=== PATIENT | male | born 1970 | race Caucasian/White ===

== ENCOUNTER 2019-06-28 12:36 | Emergency (ER) | payer OTHER ==
[~2019-06-28] VITALS: Ht 175.3 cm; Wt 79.4 kg
--- NOTE | 2019-06-28 12:54 | NUR ---
ED Nurse Note: PT WALKED IN DUE TO HIGH BLOO DPRESSURE OF 217/115 WITH HR 77 2 DAYS AGO. PT C/O HEADACHE, DIZZINESS AND BLURRING OF HIS VISION X 2 WEEKS. DENIES SOB OR CP. AAO X4, AMBULATORY WITH NO RESPIRATORY DISTRESS. PT TOOK CAPOTEN BEFORE GOING TO ED.
[2019-06-28 12:58] VITALS: BP 157/98
[2019-06-28] MEDS ORDERED: Metoclopramide 10mg/2ml Inj IVP ONE (13:15)
[2019-06-28] MEDS ORDERED: Acetaminophen 500mg (ES) tab ORAL ONE (13:15)
--- NOTE | 2019-06-28 13:25 | NUR ---
ED Nurse Note: COLLECTED BLOOD SPECIMENS THEN SENT.
--- NOTE | 2019-06-28 13:30 | NUR ---
ED Nurse Note: PT TAKEN TO CT AND RADIOLOGY VIA WHEELCHAIR.
[2019-06-28 13:47] LABS: EOSINOPHILS % (AUTO) 1.8 % (0.0-3.0); HEMOGLOBIN 14.8 G/DL (14.2-18.0); LYMPHOCYTES % (AUTO) 24.3 % (20.0-45.0); MEAN CORPUSCULAR VOLUME 88 FL (80-99); MONOCYTES % (AUTO) 5.1 % (1.0-10.0); NEUTROPHILS % (AUTO) 67.7 % (45.0-75.0); PLATELET COUNT 259 K/UL (150-450); RED BLOOD COUNT 4.77 M/UL (4.70-6.10); RED CELL DISTRIBUTION WIDTH 11.1 % (11.6-14.8); WHITE BLOOD COUNT 7.9 K/UL (4.8-10.8)
--- NOTE | 2019-06-28 13:47 | NUR ---
ED Nurse Note: PT CAME BACK FROM CT IN STABLE CONDITION.
[2019-06-28 13:52] LABS: ANION GAP 10 mmol/L (5-15); BLOOD UREA NITROGEN 21 mg/dL (7-18); CALCIUM 8.9 MG/DL (8.5-10.1); CARBON DIOXIDE 26 MMOL/L (21-32); CHLORIDE 105 MMOL/L (98-107); POTASSIUM 4.1 MMOL/L (3.5-5.1); SODIUM 141 MMOL/L (136-145)
[2019-06-28 13:56] LABS: ALANINE AMINOTRANSFERASE 28 U/L (12-78); ALBUMIN 3.7 G/DL (3.4-5.0); ALBUMIN/GLOBULIN RATIO 1.1 (1.0-2.7); ALKALINE PHOSPHATASE 57 U/L (46-116); ASPARTATE AMINO TRANSFERASE 22 U/L (15-37); BILIRUBIN,TOTAL 0.3 MG/DL (0.2-1.0)
--- NOTE | 2019-06-28 14:07 | Diagnostic Imaging Report ---
Indication: Headache Technique: Contiguous 5 mm thick transaxial imaging of the head obtained in a Siemens Sensation [address] scanner. Soft tissue and bone windows generated. Automatic Exposure Control was utilized. Total Dose length Product (DLP): 1125.7mGycm CT Dose Index Volume (CTDIvol): 53.4 mGy Comparison: none Findings: The lateral ventricles and third ventricle appear prominent disproportionate to the size of other CSF spaces such as the cerebral sulci, which appear normal. Communicating hydrocephalus may be considered. Correlate clinically. Periventricular white matter appears normal. The cortical sulci and basal cisterns appear normal. There is no mass effect or edema identified. There is no evidence of acute intracranial hemorrhage. Paranasal sinuses and mastoids are clear. Osseous structures are unremarkable. IMPRESSION: Mild disproportionate ventriculomegaly. Consider hydrocephalus. Differential includes mild centralized atrophy of the brain. No mass effect or edema or evidence of acute intracranial hemorrhage. The CT scanner at [facility] is accredited by the [employer] and the scans are performed using dose optimization techniques as appropriate to a performed exam including Automatic Exposure control.
--- NOTE | 2019-06-28 14:09 | Diagnostic Imaging Report ---
Indication: Dyspnea Comparison: None A single view chest radiograph was obtained. Findings: Cardiomediastinal appearance is within normal limits for age. The lungs are clear. Pulmonary vascularity is appropriate. The diaphragmatic contour is smooth and costophrenic angles are sharp. No pleural effusions are identified. The bones are unremarkable. Impression: No acute findings
[2019-06-28] MEDS ORDERED: NORVASC5 MG ORAL (14:34)
[2019-06-28 14:45] VITALS: BP 151/90
--- NOTE | 2019-06-28 14:45 | NUR ---
ER DISCHARGE NOTE: Patient is cleared to be discharged per ERMD, pt is aox4, on room air, with stable vital signs. pt was given dc and prescription instructions, pt was able to verbalize understanding, pt id band and iv site removed without complications. pt is able to ambulate with steady gait. pt took all belongings.
--- NOTE | 2019-06-28 16:09 | Emergency Room Report ---
History of Present Illness General Chief Complaint: Hypertension Source: Patient Present Illness HPI 48-year-old male presents ED for evaluation. Is here complaining of high blood pressure. Checked it over the last few days and states his blood pressure was high. States he did have an episode of chest pain yesterday. Lasted for a few minutes then resolved. Denies chest pain now. States he sees feels lightheaded. BP 165/96. States prior to arrival he took his [id number] captopril. Does not take BP meds himself. Admits to smoking and marijuana use. Denies any other drug use. No other aggravating relieving factors. Denies any other associated symptoms Allergies: Coded Allergies: No Known Allergies (Unverified , 06/28/19) Patient History Past Medical History: none Past Surgical History: none Pertinent Family History: none Social History: Reports: smoking, drug use; Denies: alcohol use Immunizations: UTD Reviewed Nursing Documentation: PMH: Agreed; PSxH: Agreed Nursing Documentation-PMH Past Medical History: No Stated History Review of Systems All Other Systems: negative except mentioned in HPI Physical Exam Vital Signs Date Time Temp Pulse Resp B/P (MAP) Pulse Ox O2 Delivery O2 Flow Rate FiO2 06/28/19 12:44 98.2 67 18 165/96 (119) 99 Room Air Sp02 EP Interpretation: reviewed, normal General Appearance: no apparent distress, alert, GCS 15, non-toxic Head: normocephalic, atraumatic Eyes: bilateral eye normal inspection, bilateral eye PERRL ENT: hearing grossly normal, normal pharynx, no angioedema, normal voice Neck: full range of motion, supple, no meningismus, supple/symm/no masses Respiratory: chest non-tender, lungs clear, normal breath sounds, speaking full sentences Cardiovascular #1: regular rate, rhythm, no edema Cardiovascular #2: 2+ carotid (R), 2+ carotid (L), 2+ radial (R), 2+ radial (L) , 2+ dorsalis pedis (R), 2+ dorsalis pedis (L) Gastrointestinal: normal bowel sounds, non tender, soft, non-distended, no guarding, no rebound Rectal: deferred Genitourinary: normal inspection, no CVA tenderness Musculoskeletal: back normal, normal range of motion, gait/station normal, non- tender Neurologic: alert, motor strength/tone normal, oriented x3, sensory intact, responsive, speech normal Psychiatric: judgement/insight normal, memory normal, mood/affect normal, no suicidal/homicidal ideation Reflexes: 3+ bicep (R), 3+ bicep (L), 3+ tricep (R), 3+ tricep (L), 3+ knee (R) , 3+ knee (L) Lymphatic: no adenopathy Medical Decision Making Diagnostic Impression: Primary Impression: Hydrocephalus in adult Additional Impression: Hypertension Qualified Codes: I10 - Essential (primary) hypertension ER Course Hospital Course 48-year-old male presents ED complaining of elevated BP, c/o dizziness and headache Differential diagnoses include: hypertensive urgency, hypertensive emergency, arrythmia, ID/ACS Clinical course Patient placed on stretcher. After initial history and physical I ordered labs , EKG, chest x-ray, CT Head, meds labs reviewed- all electrolytes normal, troponins negative, no leukocytosis, hemoglobin/hematocrit stable, trop negative EKG - NSR Chest x-ray-no cardiomegaly, no rib fracture, no pneumothorax, no acute process CT head - ventriculomegaly. no acute process Upon reassessment patient's BP has reduced on its own without intervention. I discussed findings with the patient. I discussed findings of CT. Consideration for hydrocephalus. Patient has no ataxia. No focal deficits. Likely an incidental finding. Patient states he will follow-up with his PMD. I will start him on low-dose Norvasc. Given copies of labs and CT results. Safe for discharge with close outpatient follow-up I. I feel this is a highly complex case requiring extensive working including EKG/Rhythm strip, Xray/CT/US, Blood/urine lab work, repeat exams while in ED, and administration of strong opiates/narcotics for pain control, admission to hospital or close patient follow up. Diagnosis - hypertension, hydrocephaus in adult Stable and discharged to home with Rx Norvasc. Instructed to followup with PMD. Return to ED if symptoms recur or worsen Labs Test 06/28/19 13:15 White Blood Count 7.9 K/UL (4.8-10.8) Red Blood Count 4.77 M/UL (4.70-6.10) Hemoglobin 14.8 G/DL (14.2-18.0) Hematocrit 42.0 % (42.0-52.0) Mean Corpuscular Volume 88 FL (80-99) Mean Corpuscular Hemoglobin 30.9 PG (27.0-31.0) Mean Corpuscular Hemoglobin Concent 35.1 G/DL (32.0-36.0) Red Cell Distribution Width 11.1 % (11.6-14.8) Platelet Count 259 K/UL (150-450) Mean Platelet Volume 7.0 FL (6.5-10.1) Neutrophils (%) (Auto) 67.7 % (45.0-75.0) Lymphocytes (%) (Auto) 24.3 % (20.0-45.0) Monocytes (%) (Auto) 5.1 % (1.0-10.0) Eosinophils (%) (Auto) 1.8 % (0.0-3.0) Basophils (%) (Auto) 1.0 % (0.0-2.0) Sodium Level 141 MMOL/L (136-145) Potassium Level 4.1 MMOL/L (3.5-5.1) Chloride Level 105 MMOL/L (98-107) Carbon Dioxide Level 26 MMOL/L (21-32) Anion Gap 10 mmol/L (5-15) Blood Urea Nitrogen 21 mg/dL (7-18) Creatinine 1.0 MG/DL (0.55-1.30) Estimat Glomerular Filtration Rate > 60 mL/min (>60) Glucose Level 101 MG/DL (74-106) Calcium Level 8.9 MG/DL (8.5-10.1) Total Bilirubin 0.3 MG/DL (0.2-1.0) Aspartate Amino Transf (AST/SGOT) 22 U/L (15-37) Alanine Aminotransferase (ALT/SGPT) 28 U/L (12-78) Alkaline Phosphatase 57 U/L (46-116) Troponin I 0.000 ng/mL (0.000-0.056) Total Protein 7.2 G/DL (6.4-8.2) Albumin 3.7 G/DL (3.4-5.0) Globulin 3.5 g/dL Albumin/Globulin Ratio 1.1 (1.0-2.7) EKG Diagnostic Results Rate: normal Rhythm: NSR ST Segments: no acute changes ASA given to the pt in ED: No Rhythm Strip Diag. Results EP Interpretation: yes Rhythm: NSR, no PVC's, no ectopy Chest X-Ray Diagnostic Results Chest X-Ray Diagnostic Results : Chest X-Ray Ordered: Yes # of Views/Limited/Complete: 1 View Indication: Chest Pain EP Interpretation: Yes Interpretation: no consolidation, no effusion, no pneumothorax, no acute cardiopulmonary disease Impression: No acute disease Electronically Signed by: Electronically signed by Ryley Pang MD CT/MRI/US Diagnostic Results CT/MRI/US Diagnostic Results : Imaging Test Ordered: CT head Impression Findings: The lateral ventricles and third ventricle appear prominent disproportionate to the size of other CSF spaces such as the cerebral sulci, which appear normal. Communicating hydrocephalus may be considered. Correlate clinically. Periventricular white matter appears normal. The cortical sulci and basal cisterns appear normal. There is no mass effect or edema identified. There is no evidence of acute intracranial hemorrhage. Paranasal sinuses and mastoids are clear. Osseous structures are unremarkable. Last Vital Signs Date Time Temp Pulse Resp B/P (MAP) Pulse Ox O2 Delivery O2 Flow Rate FiO2 06/28/19 14:45 98.2 83 16 151/90 100 Room Air Status: improved Disposition: HOME, SELF-CARE Condition: Stable Scripts Amlodipine Besylate (Norvasc) 5 Mg Tablet 5 MG ORAL DAILY, #14 TAB Prov: Ryley Pang MD 06/28/19 Patient Instructions: Normal-Pressure Hydrocephalus Ryley Pang MD Jun 28, 2019 16:09
== END 2019-06-28 14:45 | disposition home or self-care (01) ==
LOC: EMR 13:33
DX: I10 Essential (primary) hypertension (principal); G91.9 Hydrocephalus, unspecified; F17.200 Nicotine dependence, unspecified, uncomplicated
CPT/HCPCS: 36415; 70450; 71045; 80053; 84484; 85025; 93005; 96361; 96374; J2765; J7030; Z7502; 99284